=== PATIENT | male | born 1975 | race Caucasian/White ===

== ENCOUNTER → 2016-12-25 | Outpatient (CLI) | payer BC ==
[~2016-12-25] VITALS: Ht 180.3 cm; Wt 122.9 kg
[2016-12-25 14:10] VITALS: BP 145/94; PULSE 81; Ht 180.3 cm; Wt 122.9 kg
== END | disposition home or self-care (01) ==
LOC: C.NEUR 13:15
PROVIDERS: ATTEND Internal Medicine Pulmonary Disease
DX: R06.83 Snoring (principal); R53.83 Other fatigue; G47.34 Idiopathic sleep related nonobstructive alveolar hypoventilation; E66.3 Overweight; G47.61 Periodic limb movement disorder

== ENCOUNTER → 2017-02-19 | Outpatient (CLI) | payer BC ==
[~2017-02-19] VITALS: Ht 182.9 cm; Wt 124.8 kg
[2017-02-19 13:48] VITALS: BP 149/92; PULSE 73; Ht 182.9 cm; Wt 124.8 kg
== END | disposition home or self-care (01) ==
LOC: C.NEUR 12:25
PROVIDERS: ATTEND Physician Assistant Medical
DX: G47.30 Sleep apnea, unspecified (principal); G47.34 Idiopathic sleep related nonobstructive alveolar hypoventilation; E66.3 Overweight

== ENCOUNTER → 2017-02-20 | Outpatient (CLI) | payer BC ==
--- NOTE | 2017-02-21 05:29 | PAP/PSG TECHNICIAN REPORT ---
[facility] Operating Room Rn Polysomnogram Report Study name: None Report date: 02/21/2017 Study date: 02/20/2017 Referring Physician: DR. PRITCHARD Name: LACY OLIVARES Interpreting Physician: Te Pritchard M.D. Date of : 1975 Operating Room Rn: Vidhya Harden [facility]. Sex: Male Age: 42 Study Type: PSG PAP Weight: 271 lbs 19.5 in Height: 42 years, Height 5' 11" Neck Circum: BMI: 37.79 Medications: MULTI VIT Patient History 42 yr-old male here for a new CPAP treatment study. He was found to be positive for GRAYSON with and AHI of 12.6. His diagnostic study was on 01/12/17. He chose an Eson nasal mask size medium from [employer]. The test was started on room air and 4 CMH2O. ETCO2 testing was not utilized during this study. Room 1 Parameters Monitored NPSG: E1-M2, E2-M1, Fp1-M2, Fp2-M1, F3-M2, F4-M2, F4-M1, C3-M2, C4-M2, C4-M1, O1-M2, O2-M2, O2-M1, T3-M2, T4-M1, P3-M2, P4-M1, CHIN1, CHIN2, HR, EKG, Legs, PFLOW, SNOR, FLOW, CFLOW, Tidal Volume, THOR, ABDO, SpO2, PLTH, CPRESS, ETCO2 Wave, ETCO2, pH Sleep Architecture Sleep Stages Time at Lights Off 10:20:59 PM STAGES Time (min.) TST (%) Time at Lights On 5:03:59 AM Wake 55.0 -- Total Recording Time (TRT) 403.00 min. N1 39.0 11 Total Sleep Period (TSP) 377.0 min. N2 212.0 61 Total Sleep Time (TST) 348.0min. N3 11.0 3 Awake Time 55.0 min. REM 86.0 25 Wake after Sleep Onset 35.5 min. Sleep Efficiency (SE) 86 % Sleep Onset Latency (YOUNG) 19.5 min. Number of Stage 1 Shifts None Awakenings 12 Stage Changes 79 Number of REM periods 5 REM 86.0 25 REM Latency 95.5 min. NREM 262.0 75 Body Position Analysis Supine Right Left Side Prone Vertical Total Sleep Time (min.) 403.0 0.0 0.0 0.00 0.0 0.0 Total Sleep Time (%) 100% 0% 0% 0 0% N/A% Total Sleep Time REM (min.) 86.0 0.0 0.0 None 0.0 0.0 Total Sleep Time NREM (min.) 262.0 0.0 0.0 None 0.0 0.0 Intermittent Wake (min.) 55.0 0.0 0.0 None 0.0 0.0 Total Sleep Period (%) 100% None None None None None Arousals Myoclonus (PLM) * Events Count Index Events Count Index Spontaneous 22 4 Events Awake (PLMW) 50 54.5 Respiratory 3 0.5 Events Asleep w/ Arousal (PLMA) 10 1.7 PLM 10 2 Events Asleep w/o Arousal (PLMS) 36 6.2 Snoring 5 1 Total Asleep 46 7.9 Total 40 7 Total 96 14 Respiratory Analysis * CA OA MA CH H RERA Total Count 0 0 0 0 19 0 19 Index 0.0 0.0 0.0 0 3.3 0 3.3 Mean Duration 0.0 0.0 0.0 0.00 17.1 0.0 17.1 Longest Duration 0.0 0.0 0.0 0.00 0.0 0.0 23.2 Respiratory Event Summary Total Supine ~Supine Right Left Prone REM NREM Apneas Count 0 0 N/A N/A N/A N/A 0 0 Index 0.0 0 N/A N/A N/A N/A 0 0 Hypopneas (4% Desat) Count 19 19 N/A N/A N/A N/A 13 6 Index 3.3 3.3 N/A N/A N/A N/A 9.1 1.4 Apneas & All Hypopneas Count 19 19 N/A N/A N/A N/A 13 6 Index 3.3 3 N/A N/A N/A N/A 9.1 1.4 Respiratory Events (Mother Superior+All Hyp+RERA) Count 19 19 N/A N/A N/A N/A 13 6 Index 3.3 3 N/A N/A N/A N/A 9.1 1.4 Respiratory Related Arousal Count 3 19 N/A N/A N/A N/A 0 3 Index 0.5 1 N/A N/A N/A N/A 0 1 Snoring Analysis Supine Right Left Prone REM NREM Total Snore duration 9.5 min Snores count 481 N/A N/A N/A 44 437 481 Snore mean duration 1.2 Sec Snores index 83 N/A N/A N/A 30.7 100.1 82.9 TST with snoring (%) 2.7% Desaturation Event Summary: Minimum %SpO2 Event Count Mean/Min/Max Duration(sec.) Desaturation Index % Time In Bed > 90 37 28.8 / 10.0 / 58.5 13.9 41.3 86 - 90 27 22.9 / 8.3 / 47.0 7.2 58.0 81 - 85 1 8.3 / 8.3 / 8.3 20.4 0.8 76 - 80 0 N/A 0.0 0.0 71 - 75 0 N/A 0.0 0.0 66 - 70 0 N/A 0.0 0.0 61 - 65 0 N/A 0.0 0.0 56 - 60 0 N/A 0.0 0.0 51 - 55 0 N/A 0.0 0.0 < 50 0 N/A 0.0 0.0 Total REM NREM Awake <50% 0.0 min. 0.0 min. 0.0 min. 0.0 min. 51 - 60% 0.0 min. 0.0 min. 0.0 min. 0.0 min. 61 - 70% 0.0 min. 0.0 min. 0.0 min. 0.0 min. 71 - 80% 0.0 min. 0.0 min. 0.0 min. 0.0 min. 81 - 90% 227.4 min. 63.6 min. 154.9 min. 9.0 min. 91 - 100% 159.7 min. 21.9 min. 100.6 min. 37.2 min. Average 90 89 90 92 Minimum SpO2 73 82 85 73 Desaturation Event Index 7.7 19.5 3.2 12.0 # Desat. Events below 89% 39 28 9 2 Time(%) with Saturation below 89% 7.8 5.8 1.9 0.1 Time(min.) with Saturation below 89% 30.2 22.4 7.3 0.5 Time (mins) REM (mins) NREM (mins) % of TST SpO2 Below 90% 40 28 N12 29.8 SpO2 Below 88% 15 0 0 4 Heart Rate Analysis Min (bpm) Max (bpm) Average (bpm) Awake 39 127 69 NREM 51 127 65 REM 50 127 66 Overall 50 127 65 Supplemental O2 Values Minimum O2 level: None Value Start Time End Time Operating Room Rn Comments Mr. Olivares slept only in the supine position. A few PVCs were noted. No PLMs were noted. No bruxism noted. CPAP was initiated at +4 CMH2O and up-titrated to a level of +8 CMH2O, Cflex 2 which nearly eliminated all respiratory events and snoring. An Eson nasal mask size medium from [employer] was used during titration. He awoke to use the restroom one time during the night. After using the restroom around 5 am, he stated that he probably would not sleep any longer and ended the test. Mr. Olivares stated that he felt the first half of his night was restful but woke up a lot more in the second half. The final report will be interpreted and signed by a sleep physician. The completed physician report will then be placed in the patient medical record. CPAP REPORT Therapy Detail Time / Page # Comment CPAP 4 cm H2O Nasal Mask Flex Pressure Relief Humidifier on 10:19:41 PM / pg. 251 CPAP 6 cm H2O Nasal Mask Flex Pressure Relief Humidifier on 11:40:12 PM / pg. 412 INCREASED FOR HYPOPNEAS AND SNORING CPAP 7 cm H2O Nasal Mask Flex Pressure Relief Humidifier on 12:57:23 AM / pg. 566 INCREASED FOR MORE HYPOPNEAS CPAP 8 cm H2O Nasal Mask Flex Pressure Relief Humidifier on 4:04:41 AM / pg. 941 INCREASED FOR HYPOPNEAS IN REM Therapy Event: Therapy (cm H20) 4 6 7 8 Total Time at Pressure (min.) 79.2 77.2 187.3 59.3 TST at Pressure (min.) 36.2 76.7 183.8 51.3 # Periods 1 1 1 1 Sleep Onset (min.) 19.5 0.0 0.0 0.0 REM Onset (min.) N/A 35.8 89.1 0.0 Sleep Efficiency % 45 99 98 86 Wakefulness (%) 54.3 0.6 1.9 13.5 Wakefulness (min.) 43.0 0.5 3.5 8.0 NREM 1 (%) 18.3 1.9 5.3 21.9 NREM 1 (min.) 14.5 1.5 10.0 13.0 NREM 2 (%) 27.4 48.8 72.1 29.5 NREM 2 (min.) 21.7 37.7 135.1 17.5 NREM 3 (%) 0.0 1.3 5.3 0.0 NREM 3 (min.) 0.0 1.0 10.0 0.0 REM (%) 0.0 47.3 15.3 35.1 REM (min.) 0.0 36.5 28.7 20.8 # Arousals 12 4 17 7 Arousal Index 19.9 3.1 5.5 8.2 # Snore 147 296 29 9 Snore Index 243.5 231.6 9.5 10.5 AHI 6.6 6.3 1.6 2.3 AHI Supine 6.6 6.3 1.6 2.3 AHI Non-Supine N/A N/A N/A N/A NREM AHI 6.6 0.0 0.8 0.0 REM AHI N/A 13.2 6.3 5.8 RDI 6.6 6.3 1.6 2.3 # Obstructive 0 0 0 0 # Central Ap 0 0 0 0 # Mixed 0 0 0 0 # Hypopneas 4 8 5 2 RERAS 0 0 0 0 Total Respiratory Events 4 8 5 2 Time Below SpO2 89.00% (min.) 3.2 16.1 8.3 2.2 Mean NREM SpO2 (%) 90 90 90 91 Mean REM SpO2 (%) N/A 89 90 90 Mean Sleep SpO2 (%) 90 89 90 91 Min NREM SpO2 (%) 87 86 87 85 Min REM SpO2 (%) N/A 82 85 86 Position Supine (min.) 36.2 76.7 183.8 51.3 Position Non-supine (min.) 0.0 0.0 0.0 0.0 LM Index Sleep 23.2 8.6 3.9 10.5 LM Index NREM 23.2 6.0 2.3 9.8 LM Index REM N/A 11.5 12.5 11.5 Mean Heart Rate (bpm) 70 70 64 60 Min Heart Rate (bpm) 61 57 50 51
--- NOTE | 2017-02-22 14:23 | POLYSOMNOGRAPH REPORT ---
CLINICAL DATA: A 42-year-old male with BMI of 37.8, referred by myself and Dr. Enrique for nocturnal hypoxemia and obstructive sleep apnea. The patient chose a medium sized Eson nasal mask from [email or web address]. SLEEP ARCHITECTURE: Total sleep period was 377 minutes. Total sleep time was 348 divided between 260 minutes of non-REM sleep and 86 minutes of REM sleep. Sleep onset latency was 19.5 minutes. REM latency was 95.5 minutes. Sleep efficiency was 86%. Wake after sleep onset was 35.5 minutes. Sleep consisted of stage N1 11%, stage N2 61%, stage N3 3%, and REM 25%. AROUSAL DATA: Forty arousals were recorded for an index of 7 per hour. PLM DATA: Forty six limb movements during sleep were noted for an index of 7.9 per hour with arousal index of 1.7 per hour. RESPIRATORY DATA: The AHI was 3.3. There were 19 hypopneic episodes with a mean duration of 17.1 seconds. OXIMETRY DATA: Nocturnal hypoxemia was seen. Oxygen stepan was 82% during REM. The mean saturation was 90%. Time below 88% was 15 minutes. ECHOCARDIOGRAM: Heart rates ranged from 50-127 beats per minute. Occasional PVCs were noted. PROFILE SAW OPERATOR'S COMMENTS AND TREATMENT SUMMARY: The patient slept supine. CPAP was started and titrated up to his final pressure setting of 8 cm of water pressure, C-Flex setting #2. At his final pressure setting, he slept for 51 minutes with an AHI of 2.3. At 5:00 a.m., he awoke to use the restroom and then stated he would not be able to sleep any longer. IMPRESSION: Obstructive sleep apnea/hypopnea with nocturnal hypoxemia, corrected with CPAP 8 cm water pressure C-Flex 2 with an Eson nasal mask size medium from [employer]. RECOMMENDATIONS: The patient should be started on the above noted treatment regimen and seen back in followup within 90 days to document efficacy and compliance. [facility]
== END | disposition home or self-care (01) ==
LOC: C.NEUR 20:00
PROVIDERS: ATTEND Internal Medicine Pulmonary Disease
DX: G47.33 Obstructive sleep apnea (adult) (pediatric) (principal)

== ENCOUNTER → 2017-10-31 | Outpatient (CLI) | payer OTHER ==
[2017-10-31 10:14] LABS: BASO % 0.4 %; BASO ABS # 0.03 K/uL (0-0.2); EOS % 0.4 %; EOS ABS # 0.03 K/uL (0-0.5); HEMATOCRIT 43.1 % (42-52); HEMOGLOBIN 14.5 g/dL (14.0-18.0); IG# 0.03 K/uL (0.00-0.02); LYMPH % 17.5 %; LYMPH ABS # 1.38 K/uL (1.2-3.4); MEAN CELL VOLUME 88.1 fL (80-100); MEAN CORPUSCULAR HEMOGLOBIN 29.7 pg (25-34); MEAN CORPUSCULAR HGB CONC 33.6 g/dl (32-36); MEAN PLATELET VOLUME 11.1 fL (7.4-10.4); MONO % 6.1 %; MONO ABS # 0.48 K/uL (0.11-0.59); NEUT % 75.2 %; NEUT ABS # 5.95 K/uL (1.4-6.5); PLATELET COUNT 218 K/uL (130-400); RED CELL DISTRIBUTION WIDTH CV 13.3 % (11.5-14.5); RED CELL DISTRIBUTION WIDTH SD 43.4 fL (36.4-46.3)
[2017-10-31 10:41] LABS: HEMOGLOBIN A1C 5.7 % (4.5-5.6)
[2017-10-31 10:47] LABS: ALBUMIN 3.8 gm/dl (3.4-5.0); ALKALINE PHOSPHATASE 72 U/L (45-117); ALT/SGPT 26 U/L (12-78); AST/SGOT 10 U/L (15-37); BLOOD UREA NITROGEN 17 mg/dl (7-18); CALCIUM 9.1 mg/dl (8.5-10.1); CARBON DIOXIDE 24 mmol/L (21-32); CREATININE 1.05 mg/dl (0.60-1.40); GLUCOSE 108 mg/dl (70-99); POTASSIUM 3.9 mmol/L (3.5-5.1); SODIUM 140 mmol/L (136-145); TOTAL PROTEIN 7.4 gm/dl (6.4-8.2)
== END | disposition home or self-care (01) ==
LOC: C.LAB1850 09:32
PROVIDERS: ATTEND Internal Medicine
DX: R73.9 Hyperglycemia, unspecified (principal); R10.13 Epigastric pain